=== PATIENT | female | born 1995 | race Caucasian/White ===

== ENCOUNTER 2017-11-29 11:54 | Emergency (ER) | payer BC ==
[~2017-11-29] VITALS: Ht 157.5 cm; Wt 79.4 kg
[2017-11-29 11:58] VITALS: Ht 157.5 cm; Wt 79.4 kg
[2017-11-29 12:45] VITALS: BP 116/70
== END 2017-11-29 13:00 | disposition home or self-care (01) ==
LOC: ED 11:54
DX: S83.92XA Sprain of unspecified site of left knee, initial encounter (principal); W18.30XA Fall on same level, unspecified, initial encounter; Y93.41 Activity, dancing; Y92.89 Other specified places as the place of occurrence of the external cause; Y99.8 Other external cause status